=== PATIENT | female | born 2000 | race Two or more races ===

== ENCOUNTER 2023-06-19 15:37 | Emergency (ER) | payer SELFPAY ==
[~2023-06-19] VITALS: Ht 149.9 cm; Wt 57.3 kg
[2023-06-19 15:46] VITALS: BP 121/78; PULSE 78; RESP 18; TEMP 98.9
[2023-06-19] MEDS ORDERED: LIDOCAINE/PF 1% 2 ML VIAL IM ONE (16:30)
[2023-06-19] MEDS ORDERED: CefTRIAXone SODIUM 1 GM/VIAL IM ONE (16:30)
[2023-06-19] MEDS ORDERED: DOXY-354 PO (17:23)
== END 2023-06-19 17:31 | disposition home or self-care (01) ==
LOC: EMS 15:50
DX: A56.8 Sexually transmitted chlamydial infection of other sites (principal)
CPT/HCPCS: 99283; 87491; 87591; 81025; 96372; J0696; J3490